=== PATIENT | female | born 1985 | race African-American/Black ===

== ENCOUNTER 2024-04-06 10:33 | Outpatient (CLI) | payer OTHER, SELFPAY ==
[2024-04-06 12:03] LABS: Hepatitis B Surface Antigen Negative (Negative)
[2024-04-06 12:05] LABS: HIV 1/2 Ab P24 Ag Result Negative (Negative)
[2024-04-06 12:31] LABS: Hepatitis C Virus Antibody Reactive (Negative)
[2024-04-06 14:42] LABS: Rapid Plasma Reagin Non-Reactive (NonReactive)
[2024-04-09 14:08] LABS: Hepatitis C RNA, Quant PCR <15 NOT DETECTED IU/mL (NOT DETECTED)
== END 2024-04-06 10:34 | disposition home or self-care (01) ==
PROVIDERS: Visit Provider Nurse Practitioner Family
DX: Z11.3 Encounter for screening for infections with a predominantly sexual mode of transmission (principal)
CPT/HCPCS: 36415; 86592; 86703; 86803; 87340; 87522; G0432